=== PATIENT | female | born 1955 | race Two or more races ===

== ENCOUNTER 2018-08-02 05:49 | Day surgery (SDC) | payer MEDICARE, MEDICAID ==
[2018-07-28 15:24] LABS: BASOPHILS # (AUTO) 0.1 X10'3 (0-0.2); BASOPHILS % (AUTO) 0.9 % (0-1); EOSINOPHILS # (AUTO) 0.1 X10'3 (0-0.9); LYMPHOCYTES # (AUTO) 3.2 X10'3 (1.1-4.8); LYMPHOCYTES % (AUTO) 35.8 % (21-51); MEAN CORPUSCULAR HEMOGLOBIN 28.8 PG (27.0-31.0); MEAN CORPUSCULAR HGB CONC 32.6 g/dL (33.0-36.5); MEAN CORPUSCULAR VOLUME 88.5 FL (78-98); MEAN PLATELET VOLUME 9.7 FL (7.4-10.4); MONOCYTES # (AUTO) 0.4 X10'3 (0-0.9); MONOCYTES % (AUTO) 4.6 % (2-12); NEUTROPHILS # (AUTO) 5.1 X10'3 (1.8-7.7); NEUTROPHILS % (AUTO) 57.7 % (42-75); PRE OP HEMATOCRIT 42.9 % (35.0-45.0); PRE OP PLATELET COUNT 314 X10'3 (140-440); RED BLOOD COUNT 4.84 X10'6 (4.20-5.60); RED CELL DISTRIBUTION WIDTH 12.5 % (11.5-14.5)
[2018-07-28 15:40] LABS: ALBUMIN 3.5 G/DL (3.4-5.0); ALBUMIN/GLOBULIN RATIO 0.7 (1.1-1.5); ALKALINE PHOSPHATASE 161 IU/L (46-116); BLOOD UREA NITROGEN 10 MG/DL (7-18); BUN/CREATININE RATIO 14.5 (6.6-38.0); CALCIUM 9.5 MG/DL (8.5-10.1); CHLORIDE 99 MMOL/L (99-107); CREATININE 0.69 MG/DL (0.40-0.90); PRE OP ALT 31 U/L (30-65); PRE OP ANION GAP 9 (8-16); PRE OP AST 21 U/L (10-37); PRE OP BILIRUB, TOTAL 0.4 MG/DL (0.0-1.0); PRE OP POTASSIUM 3.8 MMOL/L (3.4-5.1); PRE OP SODIUM 137 MMOL/L (135-145); TOTAL CARBON DIOXIDE 29.4 MMOL/L (24-32); TOTAL PROTEIN 8.3 G/DL (6.4-8.2); eGFR 86 ML/MIN
[2018-07-28 15:43] LABS: HEMOGLOBIN A1C 7.1 % (4.5-6.2)
[2018-07-28 16:07] LABS: PRE OP GLUCOSE 227 MG/DL (70-104)
[~2018-08-02] VITALS: Ht 162.6 cm; Wt 87.2 kg
[2018-08-02] VITALS (23 sets, daily range): BP systolic 114–159; BP diastolic 49–78
[~2018-08-02 05:49] MED LIST: CLINDAmcin 900mg/NS 50ml IVPB 50 ML IV ONE; DICY10CA88 PO; FAMO40TA73 PO; GLIM4TAB79 PO; LISI40TA4 PO; METF500T7 PO; SITA25TA3 PO; URSO500T9 PO; famotidine 20mg tablet PO ONE; gentamicin inj 325 MG in normal saline 100ml IV soln 91.875 ML IV ONE; ringers solution, lacted 1,000 ML IV SCH
[2018-08-02] MEDS ORDERED: LIDOcaine 1% (10mg/ml) 2ml vial ONE (06:11)
[2018-08-02] MEDS ORDERED: ceFAZolin 1000mg inj ONE (06:51)
[2018-08-02] MEDS ORDERED: clindamycin phosphate 40gm vag cream ONE (06:51)
[2018-08-02] MEDS ORDERED: vasoPRESSIN 20 units/ml inj. ONE (06:51)
[2018-08-02] MEDS ORDERED: fentaNYL/PF 50MCG/1 ML 2ML syringe ONE (08:12)
[2018-08-02] MEDS ORDERED: sevoflurane 250ml liquid IH ONE (08:12)
[2018-08-02] MEDS ORDERED: midazolam 2 mg/2 ml injection ONE (08:13)
[2018-08-02] MEDS ORDERED: propofol inj 20 ML IV ONE (08:25)
[2018-08-02] MEDS ORDERED: rocuronium 10mg/ml inj IV ONE (08:25)
[2018-08-02] MEDS ORDERED: LIDOcaine 2% (20mg/ml) 5ml vial ONE (08:25)
[2018-08-02] MEDS ORDERED: ringers solution, lacted 1,000 ML IV SCH (08:57)
[2018-08-02] MEDS ORDERED: morphine 4 MG/ML inj SYRINge IV PRN ×2 (09:00)
[2018-08-02] MEDS ORDERED: meperidine/PF 25mg/ml syringe IV PRN ×3 (09:00)
[2018-08-02] MEDS ORDERED: ondansetron/PF 4mg/2ml inj IV PRN ×2 (09:00→09:35)
[2018-08-02] MEDS ORDERED: proCHLORperazine 10 MG/2 ml inj IV PRN (09:00)
[2018-08-02] MEDS ORDERED: glycopyrrolate 0.2mg/ml inj ONE (09:15)
[2018-08-02] MEDS ORDERED: neostigmine methylsulfate 1 MG/ML 10ml vial ONE (09:15)
[2018-08-02] MEDS ORDERED: fluoroscein sod 10% (100mg/ml) 5ml vial ONE (09:15)
[2018-08-02] MEDS ORDERED: ondansetron/PF 4mg/2ml inj ONE (09:15)
[2018-08-02] MEDS ORDERED: magnesium hydroxide 30ml (MOM) UD suspension PO PRN (09:35)
[2018-08-02] MEDS ORDERED: naloxone 0.4 mg/ml inj IV PRN (09:35)
[2018-08-02] MEDS ORDERED: HYDROcodone/acetaminophen 5mg/325mg tablet PO PRN ×2 (09:35)
[2018-08-02] MEDS ORDERED: ketorolac trometh. 30mg/ml inj. IV PRN (09:35)
[2018-08-02] MEDS ORDERED: diphenhydrAMINE 50 mg/ml inj IV PRN (09:35)
[2018-08-02] MEDS ORDERED: normal saline 500ml IV soln 500 ML IV PRN (09:35)
[2018-08-02] MEDS ORDERED: temazepam 15mg capsule PO PRN (09:35)
--- NOTE | 2018-08-02 09:38 | NUR ---
Received from OR via , accompanied by Anesthesiologist DR DOMINGUEZ and report given by Anesthesiolgist. AWAKENS TO VOICE. VITALS STABLE. ELVIRA PAD DI. MOODY PAIN. ABD SOFT. LINN WITH CLEAR URINE.
[2018-08-02] MEDS: HYDROmorphone/NS 1 mg/ml CADD 50 ML IV SCH ×8 (10:15→23:00)
[2018-08-02] MEDS ORDERED: HYDROmorphone/NS 1 mg/ml CADD 50 ML IV SCH (11:00)
--- NOTE | 2018-08-02 11:15 | NUR ---
Report received from MOTOR AND GENERATOR BRUSH CUTTERMarty.
--- NOTE | 2018-08-02 11:28 | NUR ---
Report called to receiving nurse. Transferred via [facility] . Special Issues communicated to receiving nurse. AWAKE AND ORIENTED. VITALS STABLE. DRESSING DI. MOODY PAIN. TO SURGICAL RM 354B AT [facility].
--- NOTE | 2018-08-02 11:45 | NUR ---
Pt arrived to room 354B from PACU
[2018-08-02] MEDS: ringers solution, lacted 1,000 ML IV SCH ×2 (13:23→16:48)
[2018-08-02] MEDS: simethicone 80mg chew tab PO SCH ×2 (13:26→17:29)
--- NOTE | 2018-08-02 18:05 | NUR ---
Problems reprioritized. Patient report given, questions answered & plan of care reviewed with QUINTON Cabral.
[2018-08-02] MEDS: metFORMIN 500mg tablet PO SCH (19:55)
[2018-08-02] MEDS: docusate sod 100mg capsule PO SCH (19:55)
[2018-08-02] MEDS ORDERED: Ursodiol 300mg capsule PO SCH (21:00)
[2018-08-03] MEDS: ringers solution, lacted 1,000 ML IV SCH ×2 (00:54→09:34)
[2018-08-03] MEDS: HYDROmorphone/NS 1 mg/ml CADD 50 ML IV SCH ×6 (01:00→11:00)
[2018-08-03 04:00] VITALS: BP 134/49
[2018-08-03 05:03] LABS: BASOPHILS # (AUTO) 0.1 X10'3 (0-0.2); BASOPHILS % (AUTO) 0.7 % (0-1); EOSINOPHILS # (AUTO) 0.1 X10'3 (0-0.9); EOSINOPHILS % (AUTO) 1.2 % (0-6); HEMATOCRIT 37.2 % (35.0-45.0); HEMOGLOBIN 12.7 g/dl (12.0-16.0); LYMPHOCYTES # (AUTO) 2.6 X10'3 (1.1-4.8); LYMPHOCYTES % (AUTO) 29.9 % (21-51); MEAN CORPUSCULAR HEMOGLOBIN 29.9 PG (27.0-31.0); MEAN CORPUSCULAR HGB CONC 34.2 g/dL (33.0-36.5); MEAN CORPUSCULAR VOLUME 87.5 FL (78-98); MEAN PLATELET VOLUME 8.9 FL (7.4-10.4); MONOCYTES # (AUTO) 0.5 X10'3 (0-0.9); MONOCYTES % (AUTO) 5.8 % (2-12); NEUTROPHILS # (AUTO) 5.4 X10'3 (1.8-7.7); NEUTROPHILS % (AUTO) 62.4 % (42-75); PLATELET COUNT 261 X10'3 (140-440); RED BLOOD COUNT 4.25 X10'6 (4.20-5.60); RED CELL DISTRIBUTION WIDTH 12.4 % (11.5-14.5); WHITE BLOOD COUNT 8.6 X10'3 (4.5-11.0)
--- NOTE | 2018-08-03 05:21 | NUR ---
Removed packing and FC. Explained to pt to call when voids to check post residual.
--- NOTE | 2018-08-03 06:10 | NUR ---
Problems reprioritized. Patient report given, questions answered & plan of care reviewed with QUINTON Leonardo.
[2018-08-03] MEDS ORDERED: lisinopril 20mg tablet PO SCH (08:00)
[2018-08-03] MEDS ORDERED: famotidine 20mg tablet PO SCH (08:00)
[2018-08-03] MEDS: Ursodiol 300mg capsule PO SCH ×2 (08:00→15:12)
[2018-08-03] MEDS ORDERED: SITAGLIPTIN PHOSPHATE 100 MG PO SCH (08:00)
[2018-08-03] MEDS: simethicone 80mg chew tab PO SCH ×2 (08:53→12:16)
[2018-08-03] MEDS: docusate sod 100mg capsule PO SCH (08:53)
[2018-08-03] MEDS: metFORMIN 500mg tablet PO SCH (08:53)
[2018-08-03] MEDS: CADD PCA waste documentation MC PRN ×2 (10:49→10:54)
--- NOTE | 2018-08-03 15:13 | NUR ---
repeatedly asking for actigal for this pt. she had an 0800 dose due. pharmacy just brought it up now. gave this med late
[2018-08-03 16:41] VITALS: BP 146/54
== END 2018-08-03 17:30 | disposition home or self-care (01) ==
LOC: PAS 05:49 → SUR 3N 09:34 → PAS 08-03 17:30
PROVIDERS: ATTEND Specialist
DX: N81.11 Cystocele, midline (principal); N39.46 Mixed incontinence
CPT/HCPCS: 36415; 57240; 57288; 80053; 82948; 83036; 85025; 85610; 85730; 86885; 86900; 86901; 87070; C1771; J0690; J1170; J1580; J1885; J2001; J2250; J2405; J2704; J2710; J3010; J3490; J7120; 88302; A4315; A4355; A6250; A7000; G0378; J7030